=== PATIENT | female | born 2000 | race African-American/Black ===

== ENCOUNTER 2023-12-11 11:39 | Emergency (ER) | payer MEDICAID ==
[~2023-12-11] VITALS: Ht 167.6 cm; Wt 57.0 kg
[2023-12-11 11:45] VITALS: O2SAT 97
[2023-12-11] MEDS ORDERED: AMOX1TAB16 MT (11:50)
[2023-12-11] MEDS ORDERED: IBUP-2028 MT (11:50)
[2023-12-11] MEDS: KETOROLAC 60MG/2ML VIAL IM ONE (12:24)
[2023-12-11 13:11] VITALS: BP 104/55; PULSE 100; RESP 13; TEMP 98
== END 2023-12-11 13:19 | disposition home or self-care (01) ==
LOC: ER 11:39
DX: K04.01 Reversible pulpitis (principal)
CPT/HCPCS: 99283; 81025; 96372; J1885

== ENCOUNTER 2024-06-13 17:06 | Emergency (ER) | payer MEDICAID ==
[~2024-06-13] VITALS: Ht 167.6 cm; Wt 68.0 kg
[~2024-06-13 17:06] MED LIST: AMOX1TAB16 MT; IBUP-2028 MT
[2024-06-13 17:13] VITALS: BP 120/50; PULSE 77; RESP 16; TEMP 98.4; O2SAT 99
[2024-06-13] MEDS ORDERED: NAPR-1176 MT (17:43)
[2024-06-13] MEDS: KETOROLAC 15MG/ML VIAL IM ONE (18:01)
[2024-06-13] MEDS ORDERED: AMOX1TAB16 MT (18:07)
== END 2024-06-13 18:11 | disposition home or self-care (01) ==
LOC: ER 17:06
DX: K04.7 Periapical abscess without sinus (principal)
CPT/HCPCS: 99283; 81025; 96372; J1885